=== PATIENT | male | born 1950 | race Caucasian/White ===

== ENCOUNTER 2016-09-24 12:16 | Inpatient (IN) | payer OTHER, MEDICAID ==
[~2016-09-24] VITALS: Ht 185.4 cm; Wt 100.5 kg
[2016-09-24 12:16] VITALS: BP 136/82; PULSE 70; RESP 20; TEMP 98; O2SAT 95
[~2016-09-24 12:16] MED LIST: AMIT50TA3; ARIP30TA PO; BUPR300T46 PO; ESCI10TA; HYDR-3924; TERA5CAP58; TROS60CA; VENL150C2 PO; WARF5TAB76; ZIPR80CA26 PO
[2016-09-24] MEDS ORDERED: TAMS-11 PO (13:08)
[2016-09-24] MEDS ORDERED: PRAV20TA PO (13:08)
[2016-09-24] MEDS ORDERED: MIRA25TA PO (13:08)
[2016-09-24] MEDS ORDERED: DABI150C PO (13:08)
[2016-09-24] MEDS ORDERED: EMPA10TA PO (13:08)
[2016-09-24] MEDS ORDERED: LEVO500T20 PO (13:08)
[2016-09-24] MEDS ORDERED: TRAZ-126 PO (13:08)
[2016-09-24] MEDS ORDERED: GABA-533 PO (13:08)
[2016-09-24] MEDS ORDERED: LOSA50TA3 PO (13:08)
[2016-09-24] MEDS ORDERED: METF1000 PO (13:08)
[2016-09-24] MEDS ORDERED: GLIP5TAB76 PO (13:08)
[2016-09-24] MEDS ORDERED: COG1 PO (13:08)
[2016-09-24 13:22] LABS: BASOPHILS % (AUTO) 0.3 % (0.0-2.0); EOSINOPHILS # (AUTO) 0.1 K/uL (0.0-0.4); EOSINOPHILS % (AUTO) 1.5 % (0.0-4.0); HEMATOCRIT 50.2 % (36-54); HEMOGLOBIN 16.5 g/dL (14.0-18.0); LYMPHOCYTES # (AUTO) 1.3 K/uL (1.0-5.5); LYMPHOCYTES % (AUTO) 18.4 % (20.5-51.5); MEAN CORPUSCULAR HEMOGLOBIN 30 pg (27-31); MEAN CORPUSCULAR HGB CONC 33 % (32-36); MEAN CORPUSCULAR VOLUME 91 fL (79.0-98.0); MONOCYTES # (AUTO) 0.4 K/uL (0.0-1.0); MONOCYTES % (AUTO) 6.2 % (1.7-9.3); NEUTROPHILS # (AUTO) 5.4 K/uL (1.8-7.7); NEUTROPHILS % (AUTO) 73.6 % (40.0-70.0); PLATELET COUNT (AUTO) 148 K/uL (130-430); RED BLOOD CELL COUNT(AUTO) 5.52 MIL/uL (4.2-6.2); RED CELL DISTRIBUTION WIDTH 13.5 % (9.0-15.0); WHITE BLOOD COUNT (AUTO) 7.2 K/uL (4.8-10.8)
[2016-09-24 13:32] LABS: CALCIUM 9.6 mg/dL (8.4-11.0); CREATININE 1.36 mg/dL (0.55-1.30); POTASSIUM 4.6 mmol/L (3.5-5.1)
[2016-09-24 13:37] LABS: ALBUMIN 3.9 g/dL (3.4-4.8); TOTAL BILIRUBIN 0.5 mg/dL (0.0-1.0); TOTAL PROTEIN, SERUM 7.1 g/dL (6.4-8.3)
[2016-09-24 16:09] VITALS: BP 180/101; PULSE 55; RESP 18; TEMP 97.1; O2SAT 97
[2016-09-24] MEDS ORDERED: ACETAMINOPHEN 325 MG TABLET PO PRN (18:00)
[2016-09-24] MEDS ORDERED: DEXTROSE 50% JECT 50 ML DISP.SYRIN IVP PRN (19:00)
[2016-09-24] MEDS ORDERED: INSULIN REGULAR, HUMAN 100 UNITS/ML, 10 ML VIAL (novoLIN R) SUBCUT PRN (19:00)
[2016-09-24] MEDS ORDERED: PRAVASTATIN SODIUM 20 MG TABLET (PRAVACHOL) PO SCH (21:00)
[2016-09-24 21:29] VITALS: BP 148/90; PULSE 75; RESP 18; TEMP 97; O2SAT 96
[2016-09-24] MEDS: traZODone HCL 50 MG TABLET (DESYREL) PO SCH (21:45)
[2016-09-24] MEDS: BENZTROPINE MESYLATE 1 MG TABLET PO SCH (21:45)
[2016-09-24] MEDS: SIMVASTATIN 10 MG TABLET PO SCH (21:45)
[2016-09-24] MEDS: ARIPiprazole 5 MG TAB PO SCH (21:45)
[2016-09-24] MEDS: GABAPENTIN 300 MG CAPSULE PO SCH (21:45)
[2016-09-24] MEDS: DABIGATRAN ETEXILATE MESYLATE 75 MG CAPSULE PO SCH (21:45)
[2016-09-24] MEDS: VENLAFAXINE HCL 50 MG TABLET PO SCH (21:50)
[2016-09-25] VITALS (7 sets, daily range): BP systolic 148–156; BP diastolic 85–99; PULSE 70–80; RESP 17–18; TEMP 97.1–99.4; O2SAT 93–98
[2016-09-25] MEDS ORDERED: SOLI5TAB6 PO (10:34)
[2016-09-25] MEDS: metFORMIN HCL 500 MG TABLET PO SCH ×2 (10:41→10:44)
[2016-09-25] MEDS: GABAPENTIN 300 MG CAPSULE PO SCH ×2 (10:42→23:27)
[2016-09-25] MEDS: DABIGATRAN ETEXILATE MESYLATE 75 MG CAPSULE PO SCH ×2 (10:42→23:26)
[2016-09-25] MEDS: ARIPiprazole 5 MG TAB PO SCH (10:43)
[2016-09-25] MEDS: TAMSULOSIN HCL 0.4 MG CAP PO SCH (10:51)
[2016-09-25] MEDS: LOSARTAN POTASSIUM 50 MG TABLET (COZAAR) PO SCH (10:52)
[2016-09-25] MEDS: VENLAFAXINE HCL 50 MG TABLET PO SCH ×3 (10:56→23:37)
[2016-09-25] MEDS ORDERED: levETIRAcetam 500 MG TABLET PO ONE (14:15)
[2016-09-25] MEDS: SIMVASTATIN 10 MG TABLET PO SCH (23:26)
[2016-09-25] MEDS: levETIRAcetam 500 MG TABLET PO SCH (23:27)
[2016-09-25] MEDS: BENZTROPINE MESYLATE 1 MG TABLET PO SCH (23:27)
[2016-09-25] MEDS: traZODone HCL 50 MG TABLET (DESYREL) PO SCH (23:27)
[2016-09-26 00:46] VITALS: BP 155/95; PULSE 78; RESP 18; TEMP 97; O2SAT 93
[2016-09-26 04:02] VITALS: BP 158/92; PULSE 79; RESP 18; TEMP 98.6; O2SAT 92
[2016-09-26 07:45] VITALS: BP 149/94; PULSE 79; RESP 18; TEMP 99.7; O2SAT 93
[2016-09-26] MEDS: LOSARTAN POTASSIUM 50 MG TABLET (COZAAR) PO SCH (08:32)
[2016-09-26] MEDS: metFORMIN HCL 500 MG TABLET PO SCH (08:32)
[2016-09-26] MEDS: TAMSULOSIN HCL 0.4 MG CAP PO SCH (08:32)
[2016-09-26] MEDS: GABAPENTIN 300 MG CAPSULE PO SCH (08:33)
[2016-09-26] MEDS: levETIRAcetam 500 MG TABLET PO SCH (08:33)
[2016-09-26] MEDS: VENLAFAXINE HCL 50 MG TABLET PO SCH ×2 (08:41→14:52)
[2016-09-26] MEDS: DABIGATRAN ETEXILATE MESYLATE 75 MG CAPSULE PO SCH (08:41)
[2016-09-26 11:27] VITALS: BP 114/76; PULSE 76; RESP 16; TEMP 97.9; O2SAT 93
[2016-09-26] MEDS ORDERED: LEVE500T13 PO (11:45)
[2016-09-26] MEDS ORDERED: GLIP2.5T3 PO (11:46)
== END 2016-09-26 15:15 | disposition home or self-care (01) | DRG 101 ==
LOC: SED 12:16 → SMU 15:43 → STU 15:47
PROVIDERS: ADMIT Internal Medicine Hospice and Palliative Medicine; ATTEND Internal Medicine Hospice and Palliative Medicine
DX: G40.909 Epilepsy, unspecified, not intractable, without status epilepticus (principal); R55 Syncope and collapse; E11.9 Type 2 diabetes mellitus without complications; I10 Essential (primary) hypertension; F25.9 Schizoaffective disorder, unspecified; E78.5 Hyperlipidemia, unspecified; F31.9 Bipolar disorder, unspecified; I48.0 Paroxysmal atrial fibrillation; Z86.73 Personal history of transient ischemic attack (TIA), and cerebral infarction without residual deficits; S01.81XA Laceration without foreign body of other part of head, initial encounter; Z91.14 Patient's other noncompliance with medication regimen; Z96.651 Presence of right artificial knee joint; W18.39XA Other fall on same level, initial encounter; Y93.89 Activity, other specified; Y92.096 Garden or yard of other non-institutional residence as the place of occurrence of the external cause; Y99.8 Other external cause status; Z90.49 Acquired absence of other specified parts of digestive tract; Z88.5 Allergy status to narcotic agent; Z88.8 Allergy status to other drugs, medicaments and biological substances; Z79.899 Other long term (current) drug therapy; Z90.79 Acquired absence of other genital organ(s)
CPT/HCPCS: 36415; 70450-TC; 71010; 72125-TC; 80053; 82962; 84484; 85025; 85610-TC; 85730-TC; 93005; 93306; 93880; 97116-GP; 99285; J1815

== ENCOUNTER 2016-10-06 15:49 | Emergency (ER) | payer OTHER, MEDICAID ==
[~2016-10-06] VITALS: Ht 185.4 cm; Wt 102.5 kg
[~2016-10-06 15:49] MED LIST changes: +COG1 PO; +DABI150C PO; +EMPA10TA PO; +GABA-533 PO; +GLIP2.5T3 PO; +GLIP5TAB76 PO; +LEVE500T13 PO; +LEVO500T20 PO; +LOSA50TA3 PO; +METF1000 PO; +MIRA25TA PO; +PRAV20TA PO; +SOLI5TAB6 PO; +TAMS-11 PO; +TRAZ-126 PO
[2016-10-06 15:58] VITALS: BP 132/82; PULSE 79; RESP 18; TEMP 97.6; O2SAT 98
[2016-10-06] MEDS ORDERED: ACETAMINOPHEN 500 MG TABLET PO ONE (16:15)
[2016-10-06 16:54] VITALS: BP 132/82; PULSE 79; RESP 18; TEMP 97.6; O2SAT 98
== END 2016-10-06 16:54 | disposition home or self-care (01) ==
LOC: SED 15:49
DX: S00.83XA Contusion of other part of head, initial encounter (principal); I48.91 Unspecified atrial fibrillation; E11.9 Type 2 diabetes mellitus without complications; I10 Essential (primary) hypertension; Z91.048 Other nonmedicinal substance allergy status; Z88.5 Allergy status to narcotic agent; W19.XXXA Unspecified fall, initial encounter; Y93.89 Activity, other specified; Y99.8 Other external cause status; Y92.89 Other specified places as the place of occurrence of the external cause
CPT/HCPCS: 70110-TC; 99283; 99284

== ENCOUNTER 2016-11-07 12:29 | Emergency (ER) | payer OTHER, MEDICAID ==
[~2016-11-07] VITALS: Ht 188 cm; Wt 108.9 kg
[~2016-11-07 12:29] MED LIST changes: -AMIT50TA3; -ARIP30TA PO; -DABI150C PO; -ESCI10TA; -GABA-533 PO; -GLIP5TAB76 PO; -HYDR-3924; -METF1000 PO; -TERA5CAP58; -TROS60CA; -WARF5TAB76
--- NOTE | 2016-11-07 12:29 | NUR ---
BROUGHT IN BY JOSE ANGEL Alcantar AND LIZZIE BLUE, PLACED IN BED #2 AND TRIAGED. REPORT GIVEN TO DICKSON
[2016-11-07 12:30] VITALS: BP_SYST 106
--- NOTE | 2016-11-07 12:30 | NUR ---
Placed on cardiac catheterization technician, blood pressure machine and pulse oximeter. To gown for exam. Side rails up.
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
--- NOTE | 2016-11-07 12:35 | NUR ---
ER at bedside examining patient.
[2016-11-07] MEDS ORDERED: NACL 0.9% 1,000 ML IV ONE (12:45)
[2016-11-07 13:06] LABS: BASOPHILS % (AUTO) 0.8 % (0.0-2.0); EOSINOPHILS # (AUTO) 0.1 K/uL (0.0-0.4); EOSINOPHILS % (AUTO) 2.1 % (0.0-4.0); HEMOGLOBIN 14.1 g/dL (14.0-18.0); LYMPHOCYTES # (AUTO) 1.3 K/uL (1.0-5.5); LYMPHOCYTES % (AUTO) 25.7 % (20.5-51.5); MEAN CORPUSCULAR HEMOGLOBIN 31 pg (27-31); MEAN CORPUSCULAR HGB CONC 34 % (32-36); MEAN CORPUSCULAR VOLUME 91 fL (79.0-98.0); MONOCYTES # (AUTO) 0.4 K/uL (0.0-1.0); MONOCYTES % (AUTO) 8.4 % (1.7-9.3); NEUTROPHILS # (AUTO) 3.2 K/uL (1.8-7.7); PLATELET COUNT (AUTO) 139 K/uL (130-430); RED BLOOD CELL COUNT(AUTO) 4.63 MIL/uL (4.2-6.2); RED CELL DISTRIBUTION WIDTH 12.7 % (9.0-15.0)
[2016-11-07 13:19] LABS: INR 1.1 (0.80-1.20); PROTHROMBIN TIME 11.4 SECS (9.5-12.5)
[2016-11-07 13:24] LABS: ANION GAP 6 (5-15); CALCIUM 8.5 mg/dL (8.4-11.0); CHLORIDE 107 mmol/L (98-107); CREATININE 1.35 mg/dL (0.55-1.30); GFR AFRICAN AMERICAN 68 mL/min (>90); GLUCOSE 123 mg/dL (70-99); POTASSIUM 4.3 mmol/L (3.5-5.1); SODIUM SERUM 136 mmol/L (136-145); UREA NITROGEN, BLOOD 19 mg/dL (8-21)
[2016-11-07 13:28] LABS: ACETAMINOPHEN 10 ug/mL (1-30); ALANINE AMINOTRANSFERASE 22 U/L (12-78); ALBUMIN 3.6 g/dL (3.4-4.8); ASPARTATE AMINOTRANSFERASE 16 U/L (10-37); TOTAL BILIRUBIN 0.4 mg/dL (0.0-1.0); TOTAL PROTEIN, SERUM 6.4 g/dL (6.4-8.3)
[2016-11-07 13:32] LABS: ALCOHOL, BLOOD < 3 mg/dL (<10)
--- NOTE | 2016-11-07 14:58 | NUR ---
Patient given written and verbal discharge instructions and verbalizes understanding. ER MD discussed with patient the results and treatment provided. Given copies of tests performed in ER. Patient in stable condition. ID arm band removed. IV catheter removed intact and dressing applied, no active bleeding. Rx of 0 given. Patient educated on pain management and to follow up with PMD. Pain Scale . Opportunity for questions provided and answered.
[2016-11-07 14:59] VITALS: BP_SYST 146
== END 2016-11-07 14:58 | disposition home or self-care (01) ==
LOC: SED 12:29
DX: R55 Syncope and collapse (principal); I48.91 Unspecified atrial fibrillation; E11.9 Type 2 diabetes mellitus without complications; I10 Essential (primary) hypertension; Z88.5 Allergy status to narcotic agent; Z91.048 Other nonmedicinal substance allergy status
CPT/HCPCS: 36415; 70450; 80053; 84484; 85025; 85610; 85730; 93005; 96360; 99285; G0480; G0482; J7030

== ENCOUNTER 2017-03-07 11:10 | Emergency (ER) | payer OTHER, MEDICAID ==
[~2017-03-07] VITALS: Ht 188 cm; Wt 102.1 kg
[2017-03-07 11:10] VITALS: BP_SYST 116; BP_SYST 16
--- NOTE | 2017-03-07 11:10 | NUR ---
Pt to bed 06. ER physician notified. In full C-spine precautions with hard C-collar and backboard in place.
--- NOTE | 2017-03-07 11:11 | NUR ---
Dr. Nolasco at bedside for evaluation
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
--- NOTE | 2017-03-07 11:14 | NUR ---
Report given to
[2017-03-07] MEDS ORDERED: MORPHINE 2 MG/ML INJ. SYRINGE IVP ONE (11:15)
[2017-03-07] MEDS ORDERED: ONDANSETRON HCL 4 MG/2 ML VIAL IVP ONE (11:15)
--- NOTE | 2017-03-07 11:40 | NUR ---
Pt to CT via stretcher.
--- NOTE | 2017-03-07 12:00 | NUR ---
Pt returns from CT, cleared from spinal precautions. No neurodeficits noted.
--- NOTE | 2017-03-07 12:30 | NUR ---
Skin tear to Right elbow and abrasions to LLE cleansed with sterile water and pat dry with sterile gauze. Bacitracin applied. Covered with non-adherant dsg and secured with kerlex. Cap refil < 2 sec to nail beds. Tolerated well.
[2017-03-07] MEDS ORDERED: BACITRACIN 1 GM OINT TP ONE ×2 (12:45→12:49)
[2017-03-07 12:50] VITALS: BP_SYST 122
--- NOTE | 2017-03-07 12:50 | NUR ---
Patient given written and verbal discharge instructions and verbalizes understanding. ER MD discussed with patient the results and treatment provided. Patient in stable condition. ID arm band removed. IV catheter removed intact and dressing applied, no active bleeding. Rx of Motrin given. Patient educated on pain management and to follow up with PMD. Pain Scale 1/10. Opportunity for questions provided and answered.
== END 2017-03-07 12:50 | disposition home or self-care (01) ==
LOC: SED 11:10
DX: S16.1XXA Strain of muscle, fascia and tendon at neck level, initial encounter (principal); S80.12XA Contusion of left lower leg, initial encounter; I48.91 Unspecified atrial fibrillation; E11.9 Type 2 diabetes mellitus without complications; I10 Essential (primary) hypertension; Z79.899 Other long term (current) drug therapy; Z88.5 Allergy status to narcotic agent; Z88.2 Allergy status to sulfonamides; Z88.7 Allergy status to serum and vaccine; Z88.8 Allergy status to other drugs, medicaments and biological substances
CPT/HCPCS: 72110; 72125; 73590; 96374; 96375; 99285; J2270; J2405; 99284

== ENCOUNTER 2021-09-13 09:35 | Emergency (ER) | payer OTHER, MEDICAID, SELFPAY ==
[~2021-09-13] VITALS: Ht 185.4 cm; Wt 72.6 kg
[2021-09-13 09:35] VITALS: BP_SYST 134
[~2021-09-13 09:35] MED LIST changes: -LEVE500T13 PO; +LEVE500T9 PO; +SOLI5TAB2 PO; -SOLI5TAB6 PO; -TRAZ-126 PO; +TRAZ-251 PO; +ZIPR80CA23 PO; -ZIPR80CA26 PO
--- NOTE | 2021-09-13 09:35 | NUR ---
BR[facility]GHT IN [facility] AND PLACED IN BED #4, TRIAGED AND REPORT GIVEN TO WILLIAMS
--- NOTE | 2021-09-13 09:44 | NUR ---
ER at bedside examining patient.
[2021-09-13] MEDS ORDERED: KETOROLAC TROMETHAMINE 30 MG VIAL IVP ONE (10:00)
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
--- NOTE | 2021-09-13 10:55 | NUR ---
BLOOD COLLECTED/SENT.
[2021-09-13 11:20] LABS: BASOPHILS # (AUTO) 0.1 K/uL (0.0-0.2); BASOPHILS % (AUTO) 0.9 % (0.0-2.0); EOSINOPHILS # (AUTO) 0.1 K/uL (0.0-0.4); EOSINOPHILS % (AUTO) 1.9 % (0.0-4.0); HEMOGLOBIN 13.2 g/dL (14.0-18.0); LYMPHOCYTES # (AUTO) 1.4 K/uL (1.0-5.5); LYMPHOCYTES % (AUTO) 20.9 % (20.5-51.5); MEAN CORPUSCULAR HEMOGLOBIN 30 pg (27-31); MEAN CORPUSCULAR HGB CONC 33 % (32-36); MEAN CORPUSCULAR VOLUME 92 fL (79.0-98.0); MONOCYTES # (AUTO) 0.7 K/uL (0.0-1.0); MONOCYTES % (AUTO) 10.1 % (1.7-9.3); NEUTROPHILS # (AUTO) 4.4 K/uL (1.8-7.7); NEUTROPHILS % (AUTO) 66.2 % (40.0-70.0); PLATELET COUNT (AUTO) 158 K/uL (130-430); RED BLOOD CELL COUNT(AUTO) 4.35 MIL/uL (4.2-6.2); RED CELL DISTRIBUTION WIDTH 15.2 % (9.0-15.0); WHITE BLOOD COUNT (AUTO) 6.6 K/uL (4.8-10.8)
[2021-09-13 11:49] LABS: CALCIUM 9.3 mg/dL (8.4-11.0); CREATININE 1.02 mg/dL (0.55-1.30); POTASSIUM 4.7 mmol/L (3.5-5.1)
[2021-09-13 12:05] LABS: ALBUMIN 3.5 g/dL (3.4-4.8); TOTAL BILIRUBIN 0.3 mg/dL (0.0-1.0)
[2021-09-13] MEDS ORDERED: TRAM50TA PO ×3 (12:17→13:53)
[2021-09-13] MEDS ORDERED: MAGN296S30 PO ×3 (12:17→13:53)
--- NOTE | 2021-09-13 13:37 | NUR ---
[facility] CALLED BACK STATING THEY CAN BE HERE EARLIER ETA [id number]
[2021-09-13 13:44] VITALS: BP_SYST 158
--- NOTE | 2021-09-13 13:45 | NUR ---
Patient resting quietly. No acute distress noted. Vital signs within normal range. awaiting for ambulance transfer for d/c.
--- NOTE | 2021-09-13 13:58 | NUR ---
patient will return to boarding care and report given to senior manager asset protection Jesús all questions answered.
--- NOTE | 2021-09-13 15:21 | NUR ---
Patient given written and verbal discharge instructions and verbalizes understanding. ER MD discussed with patient the results and treatment provided. Patient in stable condition. ID arm band removed. IV catheter removed intact and dressing applied, no active bleeding. Rx of given. Patient educated on pain management and to follow up with PMD. Pain Scale . Opportunity for questions provided and answered. Medication side effect fact sheet provided. report given to Jesús dumas via ambulance BLS service.
== END 2021-09-13 15:21 ==
LOC: SED 09:35
DX: K59.00 Constipation, unspecified (principal); E11.9 Type 2 diabetes mellitus without complications; I11.0 Hypertensive heart disease with heart failure; I50.9 Heart failure, unspecified; Z88.8 Allergy status to other drugs, medicaments and biological substances; Z88.2 Allergy status to sulfonamides; Z91.09 Other allergy status, other than to drugs and biological substances
CPT/HCPCS: 36415; 74176; 76376; 80053; 83690; 85025; 96374; 99284; J1885

== ENCOUNTER 2022-01-09 19:06 | Emergency (ER) | payer OTHER, MEDICAID ==
[~2022-01-09] VITALS: Ht 185.4 cm; Wt 93.0 kg
[~2022-01-09 19:06] MED LIST changes: +MAGN296S8 PO; +TRAM50TA PO; -VENL150C2 PO; +VENL150C4 PO
[2022-01-09 19:20] VITALS: BP_SYST 133
--- NOTE | 2022-01-09 19:20 | NUR ---
Patient triaged and placed in the [address] w/ ems gurney. VSS and patient appears in no acute distress at this time. Accompanied by emt.Report given to Beatrice
--- NOTE | 2022-01-09 20:02 | NUR ---
Swabbed COVID & MRSA. Sent to lab.
--- NOTE | 2022-01-09 20:03 | NUR ---
Urine: Dark Yellow, clear, sent to lab.
[2022-01-09 20:22] LABS: BILIRUBIN,URINE NEGATIVE (NEGATIVE); BLOOD, URINE NEGATIVE (NEGATIVE); CLARITY/URINE CLEAR (CLEAR); COLOR,URINE YELLOW (YELLOW); GLUCOSE,URINE NEGATIVE (NEGATIVE); KETONES,URINE TRACE (NEGATIVE); LEUKOCYTE ESTERASE ,URINE NEGATIVE (NEGATIVE); NITRITE, URINE NEGATIVE (NEGATIVE); PH,URINE 6.5 (5.0-8.0); PROTEIN URINE NEGATIVE (NEGATIVE); UROBILINOGEN,URINE 0.2 (0.2-1.0)
[2022-01-09 20:36] LABS: BARBITURATE, URINE NEGATIVE (NEG <=200); BENZODIAZEPINE, URINE NEGATIVE (NEG <=150); CANNABINOID, URINE NEGATIVE (NEG <=50); COCAINE, URINE NEGATIVE (NEG <=150); METHAMPHETAMINES SCREEN,URINE NEGATIVE (NEG <=500); OPIATE, URINE NEGATIVE (NEG <=100); PHENCYCLIDINE SCREEN,URINE NEGATIVE (NEG <=25); UR TRICYCLIC ANTIDEPRESSANTS POSITIVE (NEG <=300); URINE AMPHETAMINE NEGATIVE (NEG <=500); URINE METHADONE NEGATIVE (NEG <=200); URINE OXYCODONE SCREEN NEGATIVE (NEG <=100); URINE PROPOXYPHENE SCREEN NEGATIVE (NEG <=300)
[2022-01-09 20:51] LABS: BASOPHILS % (AUTO) 0.8 % (0.0-2.0); EOSINOPHILS # (AUTO) 0.1 K/uL (0.0-0.4); EOSINOPHILS % (AUTO) 2.4 % (0.0-4.0); HEMATOCRIT 39.1 % (36-54); HEMOGLOBIN 13.3 g/dL (14.0-18.0); LYMPHOCYTES # (AUTO) 1.3 K/uL (1.0-5.5); LYMPHOCYTES % (AUTO) 28.3 % (20.5-51.5); MEAN CORPUSCULAR HEMOGLOBIN 32 pg (27-31); MEAN CORPUSCULAR HGB CONC 34 % (32-36); MEAN CORPUSCULAR VOLUME 93 fL (79.0-98.0); MONOCYTES # (AUTO) 0.4 K/uL (0.0-1.0); MONOCYTES % (AUTO) 8.3 % (1.7-9.3); NEUTROPHILS # (AUTO) 2.7 K/uL (1.8-7.7); NEUTROPHILS % (AUTO) 60.2 % (40.0-70.0); PLATELET COUNT (AUTO) 143 K/uL (130-430); RED CELL DISTRIBUTION WIDTH 14.9 % (9.0-15.0); WHITE BLOOD COUNT (AUTO) 4.5 K/uL (4.8-10.8)
[2022-01-09 21:01] LABS: ANION GAP 7 (5-15); CALCIUM 8.4 mg/dL (8.4-11.0); CHLORIDE 108 mmol/L (98-107); CREATININE 1.44 mg/dL (0.55-1.30); GLUCOSE 113 mg/dL (70-99); POTASSIUM 4.6 mmol/L (3.5-5.1); SODIUM SERUM 141 mmol/L (136-145); UREA NITROGEN, BLOOD 20 mg/dL (8-21)
[2022-01-09 21:06] LABS: GFR AFRICAN AMERICAN 62 mL/min (>90)
[2022-01-09 21:07] LABS: ALANINE AMINOTRANSFERASE 9 U/L (12-78); ALBUMIN 3.4 g/dL (3.4-4.8); ASPARTATE AMINOTRANSFERASE 12 U/L (10-37); TOTAL BILIRUBIN 0.2 mg/dL (0.0-1.0)
[2022-01-09 21:09] LABS: ACETAMINOPHEN < 1 ug/mL (1-30); ALCOHOL, BLOOD < 3 mg/dL (<10)
[2022-01-09 21:38] LABS: CHOLESTEROL 139 mg/dL (<200); HDL CHOLESTEROL 46 mg/dL (>45); LDL CHOLESTEROL 84 mg/dL (<100); TRIGLYCERIDES 97 mg/dL (30-150)
--- NOTE | 2022-01-09 23:14 | NUR ---
Patient to be transferred to [facility]. Is being transferred due to higher level of care. Receiving facility has accepting physician and available space. ER physician has signed transfer form. Patient or responsible democrat has agreed to transfer and signed form. Patient belongings sent with patient. Copy of nursing notes, lab reports, EKG, Physicians Orders and X-rays to be sent with patient. Report called to Jeana at receiving facility. Left in stable condition.
[2022-01-09 23:16] VITALS: BP_SYST 133
== END 2022-01-09 23:16 ==
LOC: SED 19:06
DX: F23 Brief psychotic disorder (principal); R45.851 Suicidal ideations; R45.850 Homicidal ideations; E11.9 Type 2 diabetes mellitus without complications; I10 Essential (primary) hypertension; Z88.5 Allergy status to narcotic agent
CPT/HCPCS: 36415; 80053; 80061; 80307; 81003; 83036; 85025; 87081; 87426; 99285; G0480; G0481; G0482; 99283